=== PATIENT | female | born 1995 | race Caucasian/White ===

== ENCOUNTER 2024-08-17 11:30 | Day surgery (SDC) | payer OTHER ==
[2024-08-16 14:34] VITALS: BMI 23.9
[~2024-08-17 11:30] MED LIST: Pre Op ABX Message 1 EACH MISC MISCELLANE ONE
[2024-08-17] MEDS: IV FLUID CONTINUATION 1,000 ML IV ONE (11:55)
[2024-08-17] MEDS: LACTATED RINGERS 1,000 ML BAG IV STA (12:00)
[2024-08-17] MEDS: ONDANSETRON 4 MG/2 ML VIAL IVP STA (12:00)
[2024-08-17] MEDS: MIDAZOLAM 2 MG/2 ML VIAL IV ONE (12:01)
[2024-08-17] MEDS: DEXAMETHASONE SOD PHOSPHATE 4 MG/ML 1 ML VIAL IVP STA (12:01)
[2024-08-17] MEDS ORDERED: PROPOFOL 10 MG/ML 20 ML VIAL IV ONE (12:12)
[2024-08-17] MEDS ORDERED: LIDOCAINE 1% INJ 10MG/ML (20 ML MDV) ONE (12:12)
[2024-08-17] MEDS ORDERED: fentaNYL (PF) 50 MCG/ML 2 ML AMP ONE (12:12)
[2024-08-17] MEDS ORDERED: KETOROLAC 15 MG/ML 1 ML VIAL ONE (12:12)
[2024-08-17 12:18] LABS: Basophils % (A) 0 %; Eosinophils # (A) 0.1 k/uL (0-0.7); Eosinophils % (A) 1 %; HCT 39.6 % (34.0-46.0); HGB 13.4 gm/dL (11.4-16.0); Lymphocytes # (A) 2.5 k/uL (1.0-4.8); Lymphocytes % (A) 31 %; MCHC 33.8 g/dL (31.0-37.0); MCV 88.8 fL (80.0-100.0); Mean Platelet Volume 7.1; Monocytes # (A) 0.3 k/uL (0-1.0); Monocytes % (A) 4 %; Neutrophils # (A) 4.9 k/uL (1.3-7.7); Neutrophils % (A) 62 %; Platelet Count 243 k/uL (150-450); RBC 4.46 m/uL (3.80-5.40); RDW 12.5 % (11.5-15.5)
[2024-08-17 12:51] VITALS: TEMP 98.1
--- NOTE | 2024-08-17 12:57 | P.OP ---
Date of Procedure: 08/17/24 Preoperative Diagnosis: Missed AB, 8 weeks, Rh- Postoperative Diagnosis: Same Procedure(s) Performed: Suction dilation and curettage Anesthesia: MAC Surgeon: Estephania Schwartz Estimated Blood Loss (ml): 10 IV fluids (ml): 600 Urine output (ml): 25 (Clear yellow via red rubber catheter) Pathology: other (Products of conception) Condition: stable Disposition: PACU Indications for Procedure: 29-year-old G2, P1 at approximately 9 weeks of that presented for viability ultrasound at [facility] [employer]. Ultrasound consistent with 8-week missed AB. Patient was counseled on options including Cytotec versus suction dilation and curettage. Patient elected suction dilation curettage. Procedure was reviewed and questions were answered. Patient and consented to suction dilation curettage Operative Findings: Moderate amount of products of conception Description of Procedure: And was taken back to the operating suite where general anesthesia was obtained without difficulty by the anesthesia department. She was prepped and draped in the normal sterile fashion in the dorsal lithotomy position. A red rubber catheter was used to drain the bladder of clear yellow urine. A weighted speculum was placed in the posterior vaginal vault the anterior lip of the cervix was visualized and grasped with a single-tooth tenaculum. The endocervical canal was then serially dilated. An 8 curved suction curette was placed through the cervix and toward the endometrial cavity suction was activated and a moderate amount of products of conception were cleared after multiple passes. A gentle sharp curettage revealed a normal cavity. Minimal bleeding was appreciated after procedure. The single-tooth tenaculum was taken off of the antilipid the cervix hemostasis was appreciated. All counts noted be correct x 2. Patient was taken the recovery room awake in stable condition.
[2024-08-17] MEDS: Rhogam IMMUNE GLOBULIN 1,500 UNIT/1 ML IM ONE (13:35)
[2024-08-17 13:50] VITALS: RESP 14
[2024-08-17 14:08] VITALS: BP 105/60; PULSE 70
== END 2024-08-17 14:30 | disposition home or self-care (01) ==
LOC: OR 11:30
PROVIDERS: ATTEND Obstetrics & Gynecology Obstetrics
DX: O02.1 Missed abortion (principal)
CPT/HCPCS: 86900; 86901; 85025; 86850; 59820; J2790; J2250; J1100; J2405; J2003; J3010; J1885; J2704; 88305